=== PATIENT | male | born 1995 ===

== ENCOUNTER → 2022-08-30 | Outpatient (CLI) | payer BC | LOC: SLEEPLAB 17:30 | PROVIDERS: ATTEND Family Medicine | DX: G47.33 Obstructive sleep apnea (adult) (pediatric) (principal); R53.83 Other fatigue; E11.9 Type 2 diabetes mellitus without complications; E66.9 Obesity, unspecified; R06.83 Snoring; G47.00 Insomnia, unspecified; Z68.36 Body mass index [BMI] 36.0-36.9, adult | CPT/HCPCS: 95800 ==

== ENCOUNTER 2022-09-18 09:32 | Emergency (ER) | payer BC | END 2022-09-18 10:38 | disposition home or self-care (01) | LOC: ERS 09:32 | DX: I83.899 Varicose veins of unspecified lower extremity with other complications (principal) | CPT/HCPCS: 99283 ==